=== PATIENT | female | born 1975 | race Hispanic/Latino ===

== ENCOUNTER 2023-08-17 04:09 | Emergency (ER) | payer OTHER ==
[~2023-08-17] VITALS: Ht 165.1 cm; Wt 66.0 kg
[2023-08-17 04:31] LABS: RAPID GROUP A STREP negative (NEGATIVE)
[2023-08-17 04:34] LABS: APPEARANCE,URINE CLEAR (CLEAR); BILIRUBIN,URINE NEGATIVE (NEGATIVE); COLOR,URINE LIGHT-YELLOW (YELLOW); GLUCOSE, URINE (UA) NEGATIVE (NEGATIVE); KETONES,URINE NEGATIVE (NEGATIVE); LEUKOCYTE ESTERASE ,URINE NEGATIVE Leu/uL (NEGATIVE); NITRATE,URINE NEGATIVE (NEGATIVE); OCCULT BLOOD,URINE SMALL (NEGATIVE); PH,URINE 6.5 (5.0-8.0); PROTEIN,URINE NEGATIVE (NEGATIVE); UROBILINOGEN,URINE 0.2 mg/dL (0.2-1.0)
[2023-08-17 04:37] LABS: SARS-CoV-2, RNA, NAAT NEGATIVE SARS CoV-2 (NEGATIVE)
[2023-08-17 04:37] LABS: ADD UA MICROSCOPIC YES
[2023-08-17 04:38] LABS: HCG,QUALITATIVE URINE NEGATIVE (NEGATIVE)
[2023-08-17 04:40] LABS: MUCUS,URINE RARE LPF (None Seen); SQUAMOUS EPITHELIAL CELL,UR FEW /HPF (0-2); WBC,URINE 0-1 /HPF (0-1)
[2023-08-17 04:41] LABS: INFLUENZA TYPE A Negative For Type A (NEGATIVE); INFLUENZA TYPE B Negative For Type B (NEGATIVE)
[2023-08-17] MEDS ORDERED: PRED20TA3 PO (04:45)
[2023-08-17] MEDS ORDERED: ALBU90AE2 IH (04:45)
[2023-08-17] MEDS: PREDNISONE 20 MG TABLET ONE (05:19)
[2023-08-17] MEDS: PREDNISONE 20 MG TABLET PO ONE (05:32)
[2023-08-17 05:33] VITALS: BP 123/74; PULSE 87; RESP 18; O2SAT 98
== END 2023-08-17 05:35 | disposition home or self-care (01) ==
LOC: EDH 04:09
DX: J45.901 Unspecified asthma with (acute) exacerbation (principal); J06.9 Acute upper respiratory infection, unspecified; Z20.822 Contact with and (suspected) exposure to COVID-19; Z79.899 Other long term (current) drug therapy; Z98.890 Other specified postprocedural states
CPT/HCPCS: 81001; 81025; 87635; 87804; 87880